=== PATIENT | male | born 1955 | race Caucasian/White ===

== ENCOUNTER → 2023-08-20 | Day surgery (SDC) | payer OTHER ==
[2023-08-18 10:40] VITALS: BMI 28.3
[~2023-08-20] MED LIST: Dexmedetomidine 200 MCG/2 ML VIAL ONE; Heparin 10,000 UNITS/ 10 ML VIAL ONE; Heparin 25,000 units/D5W 500 ML ONE; Ondansetron PF 4 MG/2 ML Vial ONE; PHENYLEPHRINE-NS 100 MCG/ML 10 ML SYRINGE ONE; PROPOFOL 200 MG/20 ML VIAL ONE; Protamine Sulfate 50 MG/5 ML VIAL ONE; Rocuronium Bromide 10 MG/ML (10ML VIAL) ONE; SUGAMMADEX SODIUM 200 MG/2 ML VIAL ONE; ePHEDrine/0.9% NaCl/PF SYRINGE 50 mg/10 ml ONE; fentaNYL 50 mcg/mL 1 mL Vial ONE; fentaNYL PF 100 MCG/2 ML SYRINGE ONE
== END ==
LOC: SDC 06:34
PROVIDERS: ATTEND Internal Medicine Cardiovascular Disease
PROC: B24BZZ4 Ultrasonography of Heart with Aorta, Transesophageal (ICD-10-PCS; principal; 2023-08-20)
PROC: 02583ZZ Destruction of Conduction Mechanism, Percutaneous Approach (ICD-10-PCS; principal; 2023-08-20)
DX: I48.19 Other persistent atrial fibrillation (principal)
CPT/HCPCS: 85347; 93005; 93312; 93656; 93657; C1732; C1759; C1760; C1894; C2630; J1644; J2720; J3010

== ENCOUNTER 2025-03-22 07:41 | Outpatient (CLI) | payer OTHER ==
[2025-03-22] MEDS ORDERED: GASTROGRAFIN 30 ML BOT ONE (13:07)
[2025-03-22] MEDS ORDERED: Iopamidol 370 76% 100 ML VIAL ONE (13:07)
== END 2025-03-22 07:42 | disposition home or self-care (01) ==
LOC: CT 07:41
PROVIDERS: ATTEND Internal Medicine Hematology & Oncology
DX: C7A.1 Malignant poorly differentiated neuroendocrine tumors (principal); R19.00 Intra-abdominal and pelvic swelling, mass and lump, unspecified site
CPT/HCPCS: 71260; 74177; J1642; Q9963; Q9967

== ENCOUNTER 2025-07-13 08:02 | Inpatient (IN) | payer OTHER ==
[2025-07-13] MEDS ORDERED: Heparin 5,000 UNITS/ML VIAL ONE (08:58)
[2025-07-13] MEDS ORDERED: CEFAZOLIN 2 GM VIAL ONE (08:58)
[2025-07-13] MEDS ORDERED: metroNIDAZOLE 500 MG (100 mL) BAG ONE (08:58)
[2025-07-13] MEDS ORDERED: Acetaminophen 325 MG (10.15 ML) UDCUP ONE (08:58)
[2025-07-13] MEDS ORDERED: Acetaminophen 325 MG TAB ONE (08:59)
[2025-07-13 09:30] LABS: #Basophils 0.04 10x3/uL (0.0-0.2); #Eosinophils 0.40 10x3/uL (0.0-0.7); #Monocytes 0.49 10x3/uL (0.11-0.59); #Neutrophils 4.73 10x3/uL (1.40-6.50); %Basophils 0.7 % (0.0-1.0); %Eosinophils 6.8 % (0.0-10.0); %Lymphocytes 3.7 % (21.0-51.0); %Monocytes 8.3 % (0.0-10.0); %Neutrophils 79.8 % (42.0-75.0); Hematocrit 27.4 % (42.0-52.0); Hemoglobin 8.4 g/dL (14.0-18.0); Mean Corpuscular Hemoglobin 26.8 pg (27.0-31.0); Mean Corpuscular Volume 87.3 fL (78.0-98.0); Platelet Count 187 10x3/uL (130-400); Red Blood Cell (RBC) Count 3.14 mill/uL (4.70-6.10); White Blood Cell (WBC) Count 5.92 10x3/uL (4.8-10.8)
[2025-07-13 09:55] LABS: Anion Gap 15 mmol/L (10-20); BUN (Urea Nitrogen) 15 mg/dL (8.4-25.7); Calc. Creatinine Clearance 124 mL/min (70-130); Calcium 8.8 mg/dL (7.8-10.44); Carbon Dioxide 23 mmol/L (23-31); Chloride 103 mmol/L (98-107); Glucose 90 mg/dL (80-115); Potassium 4.1 mmol/L (3.5-5.1); Sodium 137 mmol/L (136-145)
[2025-07-13] MEDS ORDERED: PHENYLEPHRINE-NS 100 MCG/ML 10 ML SYRINGE ONE (10:51)
[2025-07-13] MEDS ORDERED: fentaNYL PF 100 MCG/2 ML SYRINGE ONE (10:51)
[2025-07-13] MEDS ORDERED: PROPOFOL 20 ML ONE (10:51)
[2025-07-13] MEDS ORDERED: Glycopyrrolate 0.2 MG/ML 5 ML SYRINGE ONE (10:51)
[2025-07-13] MEDS ORDERED: Rocuronium Bromide 10 MG/ML (10ML VIAL) ONE (11:14)
[2025-07-13] MEDS ORDERED: Ondansetron PF 4 MG/2 ML Vial ONE (11:21)
[2025-07-13] MEDS ORDERED: SUGAMMADEX SODIUM 200 MG/2 ML VIAL ONE (11:50)
[2025-07-13] MEDS ORDERED: hydrALAZINE 20 MG/ML VIAL SLOW IVP PRN (12:15)
[2025-07-13] MEDS ORDERED: Ondansetron PF 4 MG/2 ML Vial IVP PRN (12:15)
[2025-07-13] MEDS ORDERED: Oxybutynin 5 MG TAB PO PRN (12:19)
[2025-07-13] MEDS: Gabapentin 300 MG CAP PO SCH (15:26)
[2025-07-13] MEDS: Mirtazapine 15 MG TAB PO SCH (20:54)
[2025-07-14 04:56] LABS: #Basophils Less than 0.03 10x3/uL (0.0-0.2); #Eosinophils Less than 0.03 10x3/uL (0.0-0.7); #Monocytes 0.60 10x3/uL (0.11-0.59); #Neutrophils 7.28 10x3/uL (1.40-6.50); %Basophils 0.1 % (0.0-1.0); %Eosinophils 0.2 % (0.0-10.0); %Lymphocytes 2.9 % (21.0-51.0); %Monocytes 7.3 % (0.0-10.0); %Neutrophils 89.0 % (42.0-75.0); Hematocrit 27.4 % (42.0-52.0); Hemoglobin 8.4 g/dL (14.0-18.0); Mean Corpuscular Hemoglobin 26.7 pg (27.0-31.0); Mean Corpuscular Volume 87.0 fL (78.0-98.0); Platelet Count 252 10x3/uL (130-400); Red Blood Cell (RBC) Count 3.15 mill/uL (4.70-6.10); White Blood Cell (WBC) Count 8.19 10x3/uL (4.8-10.8)
[2025-07-14 05:13] LABS: Anion Gap 14 mmol/L (10-20); BUN (Urea Nitrogen) 16 mg/dL (8.4-25.7); Calc. Creatinine Clearance 129 mL/min (70-130); Calcium 8.7 mg/dL (7.8-10.44); Carbon Dioxide 23 mmol/L (23-31); Chloride 103 mmol/L (98-107); Glucose 90 mg/dL (80-115); Potassium 4.4 mmol/L (3.5-5.1); Sodium 136 mmol/L (136-145)
[2025-07-14 08:58] VITALS: BMI 21.8
[2025-07-14] MEDS: Enoxaparin 30 MG (0.3 mL) SYRINGE SC SCH (09:35)
[2025-07-14] MEDS: Pantoprazole 40 MG DR.TAB PO SCH (09:36)
[2025-07-14] MEDS: Acetaminophen 500 MG TAB PO PRN (09:39)
[2025-07-14 13:23] VITALS: BMI 21.8
[2025-07-14] MEDS: Mupirocin 1 GM TUBE TP SCH (21:47)
[2025-07-15] MEDS: Enoxaparin 40 MG (0.4 mL) SYRINGE SC SCH (08:32)
[2025-07-17 12:43] VITALS: BP 116/79; TEMP 97.7
== END 2025-07-17 15:32 | disposition home health service (06) | DRG 330 ==
LOC: SURG A 08:02 → EDSTATUS 14:04 → SURG B 14:57
PROVIDERS: ADMIT Surgery; ATTEND Surgery
PROC: 0D1L0Z4 Bypass Transverse Colon to Cutaneous, Open Approach (ICD-10-PCS; principal; 2025-07-13)
DX: K56.609 Unspecified intestinal obstruction, unspecified as to partial versus complete obstruction (principal); C7A.1 Malignant poorly differentiated neuroendocrine tumors; D49.59 Neoplasm of unspecified behavior of other genitourinary organ; Z98.890 Other specified postprocedural states
CPT/HCPCS: 36415; 80048; 80053; 85025; 86850; 86900; 86901; 97139; A4340; J1100; J1642; J1644; J1650; J2250; J2405; J2704

== ENCOUNTER 2025-07-22 11:38 | Inpatient (IN) | payer OTHER ==
[~2025-07-22 11:38] MED LIST changes: -Dexmedetomidine 200 MCG/2 ML VIAL ONE; -Heparin 10,000 UNITS/ 10 ML VIAL ONE; -Heparin 25,000 units/D5W 500 ML ONE; +Iopamidol-370 76% 500 ML MDV (1 ML CHARGE) ONE; -Ondansetron PF 4 MG/2 ML Vial ONE; -PHENYLEPHRINE-NS 100 MCG/ML 10 ML SYRINGE ONE; -PROPOFOL 200 MG/20 ML VIAL ONE; -Protamine Sulfate 50 MG/5 ML VIAL ONE; -Rocuronium Bromide 10 MG/ML (10ML VIAL) ONE; -SUGAMMADEX SODIUM 200 MG/2 ML VIAL ONE; -ePHEDrine/0.9% NaCl/PF SYRINGE 50 mg/10 ml ONE; -fentaNYL 50 mcg/mL 1 mL Vial ONE; -fentaNYL PF 100 MCG/2 ML SYRINGE ONE
[2025-07-22 13:00] LABS: #Basophils Less than 0.03 10x3/uL (0.0-0.2); #Eosinophils 0.20 10x3/uL (0.0-0.7); #Monocytes 0.57 10x3/uL (0.11-0.59); #Neutrophils 6.30 10x3/uL (1.40-6.50); %Basophils 0.3 % (0.0-1.0); %Eosinophils 2.7 % (0.0-10.0); %Lymphocytes 3.7 % (21.0-51.0); %Monocytes 7.7 % (0.0-10.0); %Neutrophils 85.2 % (42.0-75.0); Hematocrit 29.0 % (42.0-52.0); Hemoglobin 8.7 g/dL (14.0-18.0); Mean Corpuscular Hemoglobin 26.0 pg (27.0-31.0); Mean Corpuscular Volume 86.8 fL (78.0-98.0); Platelet Count 295 10x3/uL (130-400); Red Blood Cell (RBC) Count 3.34 mill/uL (4.70-6.10); White Blood Cell (WBC) Count 7.39 10x3/uL (4.8-10.8)
[2025-07-22 13:26] LABS: ALT (SGPT) Less than 7 U/L (Less than 45); AST (SGOT) 64 U/L (11-34); Albumin 2.1 g/dL (3.1-4.5); Alkaline Phosphatase 94 U/L (40-110); Anion Gap 21 mmol/L (10-20); BUN (Urea Nitrogen) 17 mg/dL (8.4-25.7); Bilirubin, Total 0.4 mg/dL (0.3-1.2); Calc. Creatinine Clearance 0 mL/min (70-130); Calcium 9.6 mg/dL (7.8-10.44); Carbon Dioxide 18 mmol/L (23-31); Chloride 100 mmol/L (98-107); Globulin 4.2 g/dL (2.4-3.5); Glucose 64 mg/dL (80-115); Potassium 4.4 mmol/L (3.5-5.1); Sodium 135 mmol/L (136-145)
[2025-07-22 14:02] LABS: CAUTI Indications for Culture Pelvic or flank pain; Glucose, Urine (Dipstick) Normal (Negative); Leukocyte 500 Leu/uL (Negative); Protein, Urine (Dipstick) 100 mg/dL (Neg-Trace); RBC/HPF Greater than 50 HPF (0-3); Specific Gravity, Urine 1.031 (1.002-1.036); WBC/HPF Greater than 50 HPF (0-3)
[2025-07-22 14:26] LABS: Bacteria/HPF 1+ HPF (None Seen); Urine Culture Reflex Yes Yes
[2025-07-22 14:37] LABS: Magnesium 2.0 mg/dL (1.6-2.6)
[2025-07-22] MEDS ORDERED: LevoFLOXacin 750 mg/D5W 150 ml Premix Bag ONE (15:08)
[2025-07-22 15:20] LABS: Acetaminophen Less than 10 mcg/mL (Less than 10); Salicylate Less than 8.0 mg/dL (Less than 8.0)
[2025-07-22 18:27] LABS: Cocaine Metabolite Screen Negative (Negative); THC/Cannabinoid Screen Negative (Negative); Tricyclic Screen Negative (Negative)
[2025-07-22] MEDS ORDERED: Acetaminophen 325 MG TAB PO PRN (18:50)
[2025-07-22] MEDS ORDERED: Ondansetron PF 4 MG/2 ML Vial IVP PRN (18:50)
[2025-07-22 22:28] VITALS: BMI 21.2
[2025-07-22] MEDS: VANCOMYCIN 1.75 GM/350 ML Premix BAG IVPB SCH (22:33)
[2025-07-23 05:47] LABS: #Basophils Less than 0.03 10x3/uL (0.0-0.2); #Eosinophils 0.14 10x3/uL (0.0-0.7); #Monocytes 0.43 10x3/uL (0.11-0.59); #Neutrophils 4.81 10x3/uL (1.40-6.50); %Basophils 0.4 % (0.0-1.0); %Eosinophils 2.5 % (0.0-10.0); %Lymphocytes 3.0 % (21.0-51.0); %Monocytes 7.7 % (0.0-10.0); %Neutrophils 85.7 % (42.0-75.0); Hematocrit 26.8 % (42.0-52.0); Hemoglobin 8.0 g/dL (14.0-18.0); Mean Corpuscular Hemoglobin 26.2 pg (27.0-31.0); Mean Corpuscular Volume 87.9 fL (78.0-98.0); Platelet Count 305 10x3/uL (130-400); Red Blood Cell (RBC) Count 3.05 mill/uL (4.70-6.10); White Blood Cell (WBC) Count 5.61 10x3/uL (4.8-10.8)
[2025-07-23 06:15] LABS: Anion Gap 20 mmol/L (10-20); BUN (Urea Nitrogen) 14 mg/dL (8.4-25.7); Calc. Creatinine Clearance 130 mL/min (70-130); Calcium 9.1 mg/dL (7.8-10.44); Carbon Dioxide 17 mmol/L (23-31); Chloride 101 mmol/L (98-107); Glucose 64 mg/dL (80-115); Potassium 4.2 mmol/L (3.5-5.1); Sodium 134 mmol/L (136-145)
[2025-07-23] MEDS: Enoxaparin 40 MG (0.4 mL) SYRINGE SC SCH (08:52)
[2025-07-23] MEDS: Pantoprazole 40 MG DR.TAB PO SCH (08:52)
[2025-07-23] MEDS ORDERED: Oxybutynin 5 MG TAB PO PRN (10:00)
[2025-07-23 11:12] LABS: Iron 25 ug/dL (65-175); Iron Binding Capacity, Total 99 mcg/dL (261-462)
[2025-07-23] MEDS: Vancomycin HCl 1.25 GM in Sodium Chloride 0.9% 250 ML 250 ML IVPB SCH ×2 (14:13→21:19)
[2025-07-23] MEDS: Gabapentin 300 MG CAP PO SCH (14:14)
[2025-07-23] MEDS: Acetaminophen 500 MG TAB PO PRN (14:17)
[2025-07-23] MEDS ORDERED: Non-Formulary Item 1 EACH (Polyethylene Glycol 3350 [Miralax] 119 GM Bottle) PO SCH (21:00)
[2025-07-23] MEDS: Mirtazapine 15 MG TAB PO SCH (21:18)
[2025-07-23] MEDS: Melatonin 3 MG TAB PO PRN (21:18)
[2025-07-24 05:35] LABS: #Basophils Less than 0.03 10x3/uL (0.0-0.2); #Eosinophils 0.10 10x3/uL (0.0-0.7); #Monocytes 0.49 10x3/uL (0.11-0.59); #Neutrophils 4.01 10x3/uL (1.40-6.50); %Basophils 0.2 % (0.0-1.0); %Eosinophils 2.1 % (0.0-10.0); %Lymphocytes 3.7 % (21.0-51.0); %Monocytes 10.1 % (0.0-10.0); %Neutrophils 83.1 % (42.0-75.0); Hematocrit 29.9 % (42.0-52.0); Hemoglobin 8.9 g/dL (14.0-18.0); Mean Corpuscular Hemoglobin 25.6 pg (27.0-31.0); Mean Corpuscular Volume 86.2 fL (78.0-98.0); Platelet Count 331 10x3/uL (130-400); Red Blood Cell (RBC) Count 3.47 mill/uL (4.70-6.10); White Blood Cell (WBC) Count 4.83 10x3/uL (4.8-10.8)
[2025-07-24 05:53] LABS: Anion Gap 15 mmol/L (10-20); BUN (Urea Nitrogen) 15 mg/dL (8.4-25.7); Calc. Creatinine Clearance 143 mL/min (70-130); Calcium 9.5 mg/dL (7.8-10.44); Carbon Dioxide 23 mmol/L (23-31); Chloride 101 mmol/L (98-107); Glucose 104 mg/dL (80-115); Potassium 3.6 mmol/L (3.5-5.1); Sodium 135 mmol/L (136-145); Vancomycin, Random 21.0 ug/mL (See Comment)
[2025-07-24] MEDS ORDERED: Activase 2 MG VIAL CATH SCH (14:45)
[2025-07-24] MEDS: Activase 2 MG VIAL CATH SCH (16:33)
[2025-07-24 16:49] VITALS: BMI 21.2
[2025-07-24] MEDS: Ciprofloxacin Lactate/D5W 400 MG in Premix 1 BAG IVPB SCH (21:11)
[2025-07-25 05:37] LABS: #Basophils Less than 0.03 10x3/uL (0.0-0.2); #Eosinophils 0.10 10x3/uL (0.0-0.7); #Monocytes 0.59 10x3/uL (0.11-0.59); #Neutrophils 3.99 10x3/uL (1.40-6.50); %Basophils 0.2 % (0.0-1.0); %Eosinophils 2.0 % (0.0-10.0); %Lymphocytes 4.3 % (21.0-51.0); %Monocytes 11.9 % (0.0-10.0); %Neutrophils 80.8 % (42.0-75.0); Hematocrit 25.6 % (42.0-52.0); Hemoglobin 7.6 g/dL (14.0-18.0); Mean Corpuscular Hemoglobin 25.7 pg (27.0-31.0); Mean Corpuscular Volume 86.5 fL (78.0-98.0); Platelet Count 280 10x3/uL (130-400); Red Blood Cell (RBC) Count 2.96 mill/uL (4.70-6.10); White Blood Cell (WBC) Count 4.94 10x3/uL (4.8-10.8)
[2025-07-25 06:03] LABS: Anion Gap 14 mmol/L (10-20); BUN (Urea Nitrogen) 15 mg/dL (8.4-25.7); Calc. Creatinine Clearance 143 mL/min (70-130); Calcium 9.0 mg/dL (7.8-10.44); Carbon Dioxide 24 mmol/L (23-31); Chloride 102 mmol/L (98-107); Glucose 93 mg/dL (80-115); Potassium 3.6 mmol/L (3.5-5.1); Sodium 136 mmol/L (136-145)
[2025-07-25] MEDS: Mupirocin 1 GM TUBE NASAL DECOLONIZATION NASAL SCH (20:47)
[2025-07-26 05:37] LABS: #Basophils Less than 0.03 10x3/uL (0.0-0.2); #Eosinophils 0.09 10x3/uL (0.0-0.7); #Monocytes 0.63 10x3/uL (0.11-0.59); #Neutrophils 3.93 10x3/uL (1.40-6.50); %Basophils 0.2 % (0.0-1.0); %Eosinophils 1.8 % (0.0-10.0); %Lymphocytes 4.1 % (21.0-51.0); %Monocytes 12.8 % (0.0-10.0); %Neutrophils 80.1 % (42.0-75.0); Hematocrit 26.0 % (42.0-52.0); Hemoglobin 7.8 g/dL (14.0-18.0); Mean Corpuscular Hemoglobin 25.9 pg (27.0-31.0); Mean Corpuscular Volume 86.4 fL (78.0-98.0); Platelet Count 298 10x3/uL (130-400); Red Blood Cell (RBC) Count 3.01 mill/uL (4.70-6.10); White Blood Cell (WBC) Count 4.91 10x3/uL (4.8-10.8)
[2025-07-26 05:52] LABS: Anion Gap 15 mmol/L (10-20); BUN (Urea Nitrogen) 15 mg/dL (8.4-25.7); Calc. Creatinine Clearance 126 mL/min (70-130); Calcium 9.3 mg/dL (7.8-10.44); Carbon Dioxide 23 mmol/L (23-31); Chloride 103 mmol/L (98-107); Glucose 87 mg/dL (80-115); Potassium 3.5 mmol/L (3.5-5.1); Sodium 137 mmol/L (136-145)
[2025-07-26 05:57] LABS: INR-International Normal Ratio 1.2; Prothrombin Time 15.5 sec (12.0-14.7)
[2025-07-26 05:58] LABS: PTT 40.2 sec (22.9-36.1)
[2025-07-26] MEDS ORDERED: Sodium Bicarbonate 2.5 MEQ/5 ML SDV ONE (08:43)
[2025-07-26 12:30] VITALS: BP 113/75; TEMP 97.5
== END 2025-07-26 12:47 | disposition hospice, home (50) | DRG 542 ==
LOC: ERS 11:38 → MSONC 20:15
PROVIDERS: ADMIT Hospitalist; ATTEND Family Medicine
PROC: 3E03329 Introduction of Other Anti-infective into Peripheral Vein, Percutaneous Approach (ICD-10-PCS; principal; 2025-07-22)
PROC: 0T2BX0Z Change Drainage Device in Bladder, External Approach (ICD-10-PCS; 2025-07-26)
DX: C79.51 Secondary malignant neoplasm of bone (principal); G93.41 Metabolic encephalopathy; T83.511A Infection and inflammatory reaction due to indwelling urethral catheter, initial encounter; N13.6 Pyonephrosis; N17.9 Acute kidney failure, unspecified; Z66 Do not resuscitate; G13.1 Other systemic atrophy primarily affecting central nervous system in neoplastic disease; Z98.890 Other specified postprocedural states; F10.90 Alcohol use, unspecified, uncomplicated; C61 Malignant neoplasm of prostate; I48.91 Unspecified atrial fibrillation; B96.5 Pseudomonas (aeruginosa) (mallei) (pseudomallei) as the cause of diseases classified elsewhere; B95.2 Enterococcus as the cause of diseases classified elsewhere; Z90.49 Acquired absence of other specified parts of digestive tract; Z93.3 Colostomy status; E86.0 Dehydration; R33.9 Retention of urine, unspecified; Y84.6 Urinary catheterization as the cause of abnormal reaction of the patient, or of later complication, without mention of misadventure at the time of the procedure
CPT/HCPCS: 36415; 36416; 36598; 70450; 70553; 74177; 76376; 80048; 80053; 80202; 80306; 80307; 81001; 82140; 82728; 83540; 83550; 83735; 84443; 85025; 85610; 85730; 87040; 87077; 87086; 87186; 93005; 96365; 96366; 96375; J0692; J0744; J1642; J1650; J1956; J2543; J2916; J2997; J3373; J3375; J7050; Q9967